=== PATIENT | male | born 1980 | race Caucasian/White ===

== ENCOUNTER → 2024-08-04 | Outpatient (CLI) | payer OTHER, SELFPAY ==
--- NOTE | 2024-08-04 12:51 | NEURO_ITS ---
NCS and/or EMG Patient Report Ordering Doctor: Madan Johnson DATE OF SERVICE: 08/04/24 Gregor presents with complaints of pain and burning in the left hand. Pain radiates to the elbow. Electrodiagnostic findings: Left median motor nerve demonstrates normal distal latency, amplitude and conduction velocity. Left ulnar motor responses within normal limits, including conduction because the elbow. Normal left median and ulnar F?waves. Sensory responses are within normal limits. Needle EMG testing was performed the left upper limb. All muscles tested showed no evidence of denervation with normal motor unit action potentials. Electrodiagnostic impression: This is a normal electrodiagnostic study of the l eft upper limb. There is no electrodiagnostic evidence for peripheral neuropathy, including carpal tunnel or cubital tunnel syndrome. There is no electrodiagnostic evidence for cervical radiculopathy [facility] Codes Neurology Neurology Interp Codes: 71082-88 Musc test done w/n test comp (interp) and 95429-29 Nrv cndj test 7-8 studies (interp)
== END | disposition home or self-care (01) ==
PROVIDERS: Referring Provider Orthopaedic Surgery; Visit Provider Orthopaedic Surgery
DX: G56.02 Carpal tunnel syndrome, left upper limb (principal)
CPT/HCPCS: 95886; 95910